=== PATIENT | male | born 1940 | race Caucasian/White ===

== ENCOUNTER 2016-06-15 11:05 | Outpatient (CLI) | payer OTHER, MEDICARE ==
--- NOTE | 2016-06-15 12:55 | DIAGNOSTIC IMAGING REPORT ---
PROCEDURE: ABDOMEN/PELVIS WITH CONTRAST CLINICAL INDICATION: ABD PAIN,R/O APPI TECHNIQUE: 125 ml of Isovue 300 were injected intravenously and axial images were obtained of the abdomen and pelvis with sagittal and coronal reformations. COMPARISON: 12/09/2014 FINDINGS: ABDOMEN: Clear lung bases. Normal sized heart. Small hiatal hernia. Three cysts in the liver, the largest in the right lobe measuring 2.2 cm. Multiple cortical and parapelvic cysts in each kidney, the largest arising from the right lower pole measuring 5.3 cm. Normal gallbladder, adrenal glands, spleen, pancreas, retroperitoneal vessels with moderate calcific atherosclerosis, stomach, mesentery, and small bowel loops. PELVIS: The appendix and pelvic small bowel loops are normal. Mildly increased amount of stool in the colon and rectum. Moderate prostatomegaly. A few tiny bladder diverticula are present. The seminal vesicles, and pelvic vessels are normal. No adenopathy, free fluid, or pelvic mass. Degenerative spurring in both hip joints. Disc space loss L5-S1. IMPRESSION: 1. No evidence of acute process. Normal appendix. 2. Chronic hepatic and renal cysts. 3. Small hiatal hernia. 4. Large prostate. 5. Findings called to Dr. Cooley covering for Dr. Schwartz. All CT scans at this facility use dose modulation, iterative reconstruction, and/or weight-based dosing when appropriate to reduce radiation dose to as low as reasonably achievable.
== END 2016-06-15 23:00 ==
LOC: CT SRH 11:05
DX: R10.9 Unspecified abdominal pain (principal); K76.89 Other specified diseases of liver; N28.1 Cyst of kidney, acquired; N40.0 Benign prostatic hyperplasia without lower urinary tract symptoms; I10 Essential (primary) hypertension; G20 Parkinson's disease
CPT/HCPCS: 90004; 90074; 90100; 92235; 95059

== ENCOUNTER 2016-08-16 09:01 | Outpatient (CLI) | payer OTHER, MEDICARE ==
--- NOTE | 2016-08-16 14:35 | DIAGNOSTIC IMAGING REPORT ---
PROCEDURE: NM HEPATOBILIARY IMAGING INDICATION: NAUSEA TECHNIQUE: 8 mCi of technetium-99m Choletec was injected intravenously and images were acquired over a one hour time interval. Subsequently, fatty milk she was given for calculation of gallbladder ejection fraction. COMPARISON: CT abdomen/pelvis 06/15/2016. FINDINGS: There is homogeneous radiotracer uptake of the liver. Gallbladder is first visualized at 9 minutes. Small bowel activity is seen at 50 minutes. Ejection fraction was 61% at 20 minutes, 57% at 40 minutes and 61% at 60 minutes. IMPRESSION: 1. Normal hepatobiliary scan and ejection fraction
== END 2016-08-16 23:00 ==
LOC: NM SRH 09:01
DX: R11.0 Nausea (principal)